=== PATIENT | male | born 1990 | race Two or more races ===

== ENCOUNTER 2021-01-18 02:25 | Emergency (ER) | payer BC, OTHER ==
--- NOTE | 2021-01-18 02:27 | EDM.PDOC ---
ED HPI GENERAL MEDICAL PROBLEM - General Stated Complaint: RIGHT SIDE ABDOMINAL PAIN Time Seen by Provider: 01/18/21 02:26 Source of Information: Reports: Patient History Limitations: Reports: No Limitations - History of Present Illness INITIAL COMMENTS - FREE TEXT/NARRATIVE: 30-year-old male presents for right lower quadrant abdominal pain. Patient denies past medical history or prior abdominal surgeries. He notes that starting roughly 4:00 yesterday afternoon on his way to work he began to experience a nonradiating right lower quadrant abdominal pain. The pain persisted throughout his shift. He notes it is worse wit movement and pain was worse when he was on a bumpy road. He denies any associated nausea, vomiting, changes in bowel habits, hematuria, dysuria, back pain, fevers. He does note that he has felt somewhat gassy lately. lower right abdominal Pain Score (Numeric/FACES): 4 - Related Data Allergies Allergy/AdvReac Type Severity Reaction Status Date / Time No Known Allergies Allergy Verified 01/18/21 02:37 Home Meds: Home Meds . [No Known Home Meds] 01/18/21 [History] ED ROS GENERAL - Review of Systems Review Of Systems: Comprehensive ROS is negative, except as noted in HPI. ED EXAM, GENERAL - Physical Exam Exam: See Below Exam Limited By: No Limitations General Appearance: Alert, WD/WN, No Apparent Distress Throat/Mouth: Normal Voice, No Airway Compromise Head: Atraumatic, Normocephalic Neck: Normal Inspection Respiratory/Chest: No Respiratory Distress, Lungs Clear, Normal Breath Sounds, No Accessory Muscle Use Cardiovascular: Normal Peripheral Pulses, Regular Rate, Rhythm GI/Abdominal: Soft, Non-Tender Extremities: Normal Inspection Neurological: Alert Psychiatric: Normal Affect, Normal Mood Skin Exam: Warm, Dry, Intact, Normal Color Course - Vital Signs Last Recorded V/S: Last Vital Signs Temp 97.3 F 01/18/21 02:37 Pulse 86 01/18/21 03:56 Resp 16 01/18/21 03:56 BP 133/73 01/18/21 03:56 Pulse Ox 97 01/18/21 03:56 - Orders/Labs/Meds Orders: Active Orders 24 hr Category Date Time Status Sodium Chloride 0.9% [Saline Flush] Med 01/18/21 02:28 Active 10 ml FLUSH ASDIRECTED PRN Sodium Chloride 0.9% [Saline Flush] Med 01/18/21 02:28 Active 2.5 ml FLUSH ASDIRECTED PRN Saline Lock Insert [OM.PC] Stat Oth 01/18/21 02:28 Ordered Labs: Laboratory Tests 01/18/21 01/18/21 01/18/21 Range/Units 02:44 02:44 02:45 WBC 7.55 (4.0-11.0) K/uL RBC 4.76 (4.50-5.90) M/uL Hgb 14.5 (13.0-17.0) g/dL Hct 42.5 (38.0-50.0) % MCV 89.3 (80.0-98.0) fL MCH 30.5 (27.0-32.0) pg MCHC 34.1 (31.0-37.0) g/dL RDW Std Deviation 41.2 (28.0-62.0) fl RDW Coeff of Ashish 13 (11.0-15.0) % Plt Count 205 (150-400) K/uL MPV 10.90 (7.40-12.00) fL Neut % (Auto) 58.6 (48.0-80.0) % Lymph % (Auto) 31.4 (16.0-40.0) % [place] % (Auto) 7.8 (0.0-15.0) % Eos % (Auto) 1.9 (0.0-7.0) % Baso % (Auto) 0.3 (0.0-1.5) % Neut # (Auto) 4.4 (1.4-5.7) K/uL Lymph # (Auto) 2.4 (0.6-2.4) K/uL [place] # (Auto) 0.6 (0.0-0.8) K/uL Eos # (Auto) 0.1 (0.0-0.7) K/uL Baso # (Auto) 0.0 (0.0-0.1) K/uL Nucleated RBC % 0.0 /100WBC Nucleated RBCs # 0 K/uL Sodium 137 (136-148) mmol/L Potassium 3.7 (3.5-5.1) mmol/L Chloride 103 (98-107) mmol/L Carbon Dioxide 24.4 (21.0-32.0) mmol/L BUN 25 H (7.0-18.0) mg/dL Creatinine 1.0 (0.8-1.3) mg/dL Est Cr Clr Drug Dosing 109.50 mL/min Estimated GFR (MDRD) > 60.0 ml/min Glucose 100 (74-106) mg/dL Calcium 8.9 (8.5-10.1) mg/dL Total Bilirubin 0.5 (0.2-1.0) mg/dL AST 22 (15-37) IU/L ALT 44 (14-63) IU/L Alkaline Phosphatase 80 (46-116) U/L Total Protein 7.8 (6.4-8.2) g/dL Albumin 4.4 (3.4-5.0) g/dL Globulin 3.4 (2.6-4.0) g/dL Albumin/Globulin Ratio 1.3 (0.9-1.6) Lipase 124 (73-393) U/L Urine Color YELLOW Urine Appearance CLEAR Urine pH 6.0 (5.0-8.0) Ur Specific [place] 1.020 (1.001-1.035) Urine Protein NEGATIVE (NEGATIVE) mg/dL Urine Glucose (UA) NEGATIVE (NEGATIVE) mg/dL Urine Ketones TRACE H (NEGATIVE) mg/dL Urine Occult Blood NEGATIVE (NEGATIVE) Urine Nitrite NEGATIVE (NEGATIVE) Urine Bilirubin NEGATIVE (NEGATIVE) Urine Urobilinogen 1.0 (<2.0) EU/dL Ur Leukocyte Esterase NEGATIVE (NEGATIVE) - Re-Assessments/Exams Free Text/Narrative Re-Assessment/Exam: 01/18/21 02:39 We will get labs. Will get urinalysis to assess for hematuria. Will get CT abdomen pelvis to rule out appendicitis versus other intra-abdominal pathology. Will give Toradol for pain while working up. 01/18/21 04:29 Labs and imaging are unremarkable. Will discharge patient with primary care physician follow-up. Return precautions discussed at length and appendicitis educational information provided to patient at discharge Departure - Departure Time of Disposition: 04:29 Disposition: Home, Self-Care 01 Condition: Good Clinical Impression: Abdominal pain Qualifiers: Abdominal location: right lower quadrant Qualified Code(s): R10.31 - Right lower quadrant pain - Discharge Information Instructions: Appendicitis, Adult, Abdominal Pain, Adult Referrals: PCP,None [Primary Care Provider] - Additional Instructions: The following information is given to patients seen in the emergency department who are being discharged to home. This information is to outline your options for follow-up care. We provide all patients seen in our emergency department with a follow-up referral. The need for follow-up, as well as the timing and circumstances, are variable depending upon the specifics of your emergency department visit. If you don't have a primary care physician on staff, we will provide you with a referral. We always advise you to contact your personal physician following an emergency department visit to inform them of the circumstance of the visit and for follow-up with them and/or the need for any referrals to a consulting specialist. The emergency department will also refer you to a specialist when appropriate. This referral assures that you have the opportunity for follow-up care with a specialist. All of these measure are taken in an effort to provide you with optimal care, which includes your follow-up. Under all circumstances we always encourage you to contact your private physician who remains a resource for coordinating your care. When calling for follow-up care, please make the office aware that this follow-up is from your recent emergency room visit. If for any reason you are refused follow-up, please contact the Emergency Department at and asked to speak to the emergency department charge nurse. Please follow up with your primary care physician. If you do not have a primary care physician, see below: [facility] [address] [place] [id number] [facility] [address] [place] [phone] [facility] [address] [place] [id number] Sepsis Event Note (ED) - Focused Exam Vital Signs: Vital Signs Temp Pulse Resp BP Pulse Ox 01/18/21 03:56 86 16 133/73 97 01/18/21 02:37 97.3 F 86 20 136/79 98 - My Orders Last 24 Hours: My Active Orders 01/18/21 02:28 Sodium Chloride 0.9% [Saline Flush] 10 ml FLUSH ASDIRECTED PRN Sodium Chloride 0.9% [Saline Flush] 2.5 ml FLUSH ASDIRECTED PRN Saline Lock Insert [OM.PC] Stat - Assessment/Plan Last 24 Hours: My Active Orders 01/18/21 02:28 Sodium Chloride 0.9% [Saline Flush] 10 ml FLUSH ASDIRECTED PRN Sodium Chloride 0.9% [Saline Flush] 2.5 ml FLUSH ASDIRECTED PRN Saline Lock Insert [OM.PC] Stat
[2021-01-18] MEDS ORDERED: Sodium Chloride 0.9% 10 ML Syringe FLUSH PRN (02:28)
[2021-01-18] MEDS ORDERED: Sodium Chloride 0.9% 2.5 ML Syringe FLUSH PRN (02:28)
[2021-01-18] MEDS ORDERED: Ketorolac 30 MG/ML SDV IVPUSH ONE (02:36)
[2021-01-18 03:14] LABS: BLOOD UREA NITROGEN,BUN 25 mg/dL (7.0-18.0); CARBON DIOXIDE,CO2 24.4 mmol/L (21.0-32.0); CHLORIDE,CL 103 mmol/L (98-107); GLUCOSE RANDOM 100 mg/dL (74-106); LIPASE 124 U/L (73-393); POTASSIUM,K 3.7 mmol/L (3.5-5.1); SODIUM,NA 137 mmol/L (136-148)
[2021-01-18] MEDS ORDERED: Iopamidol 755 MG/ML 500 ML Multipack Bottle IVPUSH STA (03:48)
--- NOTE | 2021-01-18 04:28 | CT ---
Indication: Right lower quadrant abdominal pain Technique: Contrast enhanced axial CT imaging through the abdomen and pelvis. 100 mL Isovue 370 contrast agent was administered intravenously. Sagittal and coronal reconstructions are provided. Comparison: None Findings: No abnormalities are demonstrated relating to the liver, gallbladder, spleen, pancreas, adrenal glands, and kidneys. A small renal cortical cyst is noted on right. The portal vein is patent. The abdominal aorta is normal in caliber. There is no abdominal lymphadenopathy. The stomach and duodenum are unremarkable. There is no small bowel wall thickening or abnormal distention. The appendix is noninflamed. There is no colonic wall thickening, mesenteric edema, or intraperitoneal free fluid. The urinary bladder, seminal vesicles, and prostate gland are unremarkable. There is no pelvic lymphadenopathy or free fluid. A focus of air is noted deep to the left iliacus muscle, most likely a secondary to vacuum joint phenomenon from the adjacent sacroiliac joint, likely of no clinical significance. There is no associated fluid collection or muscle edema. The adjacent iliac bone is unremarkable for. A few small foci of air also noted in the right sacroiliac joint. The osseous structures are unremarkable. The included lung bases are clear. Impression: No findings account for right lower quadrant. Normal appendix. No nephrolithiasis. Please note that all CT scans at this facility use dose modulation, iterative reconstruction, and/or weight-based dosing when appropriate to reduce radiation dose to as low as reasonably achievable. Dictated by Mendy Cutler MD @ Jan 18 2021 4:26AM Signed by Dr. Mendy Cutler @ Jan 18 2021 4:26AM
== END 2021-01-18 04:39 | disposition home or self-care (01) ==
LOC: MW.ED 02:25
DX: R10.31 Right lower quadrant pain (principal)
CPT/HCPCS: 36415; 74177; 80053; 81003; 83690; 85025; 96374; 99284; J1885; Q9967; 99283